=== PATIENT | female | born 1955 | race Caucasian/White ===

== ENCOUNTER 2017-01-06 14:18 | Emergency (ER) | payer OTHER ==
[2017-01-06 14:35] VITALS: BP 119/74
--- NOTE | 2017-01-06 16:00 | RAD ---
Indication: Right wrist pain. 3 views of the wrist demonstrates no fracture. There is deformity of the distal ulna which may be congenital or due to prior injury. Clinical correlation is suggested. IMPRESSION: NO FRACTURE OF THE WRIST IS NOTED. Deformity of the distal ulna for which this may be congenital or postsurgical. Clinical correlation is suggested.
--- NOTE | 2017-01-06 16:03 | RAD ---
Indication: Right forearm injury. 2 views of the right forearm demonstrates deformity of the distal ulna from prior injury or congenital malformation. No recent fracture is noted. IMPRESSION: No recent fracture is identified.
--- NOTE | 2017-01-06 16:19 | UC ---
Hand/Wrist HPI - HPI Summary HPI Summary: HURT WRIST YESTERDAY WHILE AT WORK, TWISTED WHILE TRYING TO HOLD HEAVY BASIN. PAIN IN RIGHT WRIST AND FOREARM. NO BRUISING OR DEFORMITY NOTED. HISTORY OF CARPAL TUNNEL - History Of Current Complaint Chief Complaint: UCTrauma Stated Complaint: WRIST INJURY Time Seen by Provider: 01/06/17 15:17 Hx Obtained From: Patient Onset/Duration: Sudden Onset, Lasting Days, Still Present Severity Initially: Moderate Severity Currently: Mild Character Of Pain: Dull, Aching, Stiffness Aggravating Factor(s): Movement, Flexion, Extension Alleviating: Nothing Associated Signs And Symptoms: Positive: Negative Related History: Dominant Hand Right - Allergies/Home Medications Allergies/Adverse Reactions: Allergies Allergy/AdvReac Type Severity Reaction Status Date / Time Penicillins Allergy Intermediate Nausea Verified 01/06/17 14:27 seasonal allergies Allergy Intermediate Eyes Uncoded 01/06/17 14:27 Itchy/Swollen/Red/Watery PMH/Surg Hx/FS Hx/Imm Hx Previously Healthy: Yes - Surgical History Surgical History: Yes Surgery Procedure, Year, and Place: R hand surgery as a teenager, to repair previous break, also carpal tunnel R hand over 10 yrs ago., TUBAL LIGATION - Social History Alcohol Use: Daily Substance Use Type: None Smoking Status (MU): Light Every Day Tobacco Smoker Amount Used/How Often: 1 pack/ 3 days Review of Systems Constitutional: Negative Skin: Negative Eyes: Negative ENT: Negative Respiratory: Negative Cardiovascular: Negative Gastrointestinal: Negative Genitourinary: Negative Motor: Negative Neurovascular: Negative Musculoskeletal: Arthralgia, Myalgia Neurological: Negative Psychological: Negative All Other Systems Reviewed And Are Negative: Yes Physical Exam Triage Information Reviewed: Yes Appearance: Well-Appearing, No Pain Distress, Well-Nourished, Thin Vital Signs: Initial Vital Signs Temp 98.2 F 01/06/17 14:29 Pulse 72 01/06/17 14:29 Resp 18 01/06/17 14:29 BP 119/74 01/06/17 14:29 Pulse Ox 94 01/06/17 14:29 Vital Signs Reviewed: Yes Eye Exam: Normal ENT Exam: Normal Dental Exam: Normal Neck exam: Normal Neck: Positive: Supple, Nontender, No Lymphadenopathy Respiratory Exam: Normal Respiratory: Positive: Chest non-tender, Lungs clear, Normal breath sounds, No respiratory distress, No accessory muscle use Cardiovascular Exam: Normal Cardiovascular: Positive: RRR, No Murmur, Pulses Normal Abdominal Exam: Normal Musculoskeletal: Positive: Strength Intact, ROM Intact, No Edema, Other: - PAIN WITH FLEXION RIGHT WRIST, RADIATES TO FOREARM. Neurological Exam: Normal Psychological Exam: Normal Skin Exam: Normal Hand/Wrist Course/Dx - Course Course Of Treatment: PATIENT HAS SPLINT THAT SHE PREFERS TO WEAR - Differential Dx/Diagnosis Differential Diagnosis/HQI/PQRI: Fracture, Sprain, Strain Provider Diagnoses: RIGHT WRIST SPRAIN. Discharge - Discharge Plan Condition: Stable Disposition: HOME Patient Education Materials: Wrist Sprain (ED) Referrals: [facility] [Outside] - If Needed Mo Miller MD [Primary Care Provider] - Additional Instructions: PHYSICAL THERAPY REFERRAL: You have been prescribed physical therapy. Treatments may include stretching, exercise, application of heat or cold, and other modalities. After an injury, PT can reduce swelling and pain. In recovery, PT is used to restore mobility and strength. Your specific treatment goals are: ___X__ Reduction of Swelling (EGS, US, ice as needed) ___X__ Pain Reduction (EGS, US, ice as needed) ___X__ TENS Pack Fitting and Instruction Wound Hydrotherapy ___X__ Preservation of Mobility ___X__ Orthodox of Mobility ___X__ Strength Orthodox ___X__ Work or Sports Hardening This instruction sheet also serves as your PHYSICAL THERAPY REFERRAL! Please take it with you to the therapist, so he/she will be aware of your diagnosis and treatment plan. You may see the physical therapist of your choice for these treatments, but may wish to check with your insurance to be sure the provider you select is covered. It's important to see the doctor to whom you have been referred for follow up.
== END 2017-01-06 16:16 | disposition home or self-care (01) ==
LOC: UCEAST 14:18
DX: S63.501A Unspecified sprain of right wrist, initial encounter (principal); X50.9XXA Other and unspecified overexertion or strenuous movements or postures, initial encounter; Y92.9 Unspecified place or not applicable; Z88.0 Allergy status to penicillin; F17.210 Nicotine dependence, cigarettes, uncomplicated
CPT/HCPCS: 99211; G0463

== ENCOUNTER 2017-07-02 12:01 | Emergency (ER) | payer OTHER ==
[2017-07-02 14:57] VITALS: BP 131/75
--- NOTE | 2017-07-02 15:20 | UC ---
Ear Complaint HPI - HPI Summary HPI Summary: C/O left ear discomfort with swelling and some decreased hearing over the last 5 days. Progressively worse. Peroxide used without any relief. - History of Current Complaint Chief Complaint: UCEar Stated Complaint: LEFT EAR PAIN Time Seen by Provider: 07/02/17 15:06 Hx Obtained From: Patient ?: No Onset/Duration: Gradual Onset, Lasting Days - 5, Worse Since - onset Severity Initially: Mild Severity Currently: Moderate Pain Intensity: 8 Aggravating Factors: Nothing Alleviating Factors: Nothing Associated Signs/Symptoms: Positive: Hearing Loss, Swelling @ Related History: Seasonal Allergies, Smoking - Allergies/Home Medications Allergies/Adverse Reactions: Allergies Allergy/AdvReac Type Severity Reaction Status Date / Time MS Penicillins [Penicillins] Allergy Intermediate Nausea Verified 07/02/17 14:57 seasonal allergies Allergy Intermediate Eyes Uncoded 07/02/17 14:57 Itchy/Swollen/Red/Watery PMH/Surg Hx/FS Hx/Imm Hx Cardiovascular History: Hypertension Neurological History: TIA - Surgical History Surgical History: Yes Surgery Procedure, Year, and Place: R hand surgery as a teenager, to repair previous break, also carpal tunnel R hand over 10 yrs ago., TUBAL LIGATION - Family History Known Family History: Negative: Cardiac Disease, Hypertension, Diabetes - Social History Occupation: Employed Full-time Lives: With Family Alcohol Use: Daily Substance Use Type: None Smoking Status (MU): Light Every Day Tobacco Smoker Amount Used/How Often: 1 pack/ 3 days Cessation Counseling: Patient Advised to Stop Review of Systems ENT: Ear Ache, Sinus Congestion - maxillary pressure Is Patient Immunocompromised?: No All Other Systems Reviewed And Are Negative: Yes Physical Exam Triage Information Reviewed: Yes Appearance: Well-Appearing, No Pain Distress, Well-Nourished Vital Signs: Initial Vital Signs Temp 98.8 F 07/02/17 14:53 Pulse 59 07/02/17 14:53 Resp 16 07/02/17 14:53 BP 131/75 07/02/17 14:53 Pulse Ox 100 07/02/17 14:53 Vital Signs Reviewed: Yes ENT: Positive: Pharynx normal, TMs normal, Other - irritation with redness and tenderness in the left external canal. Neck: Positive: Tenderness @ - upper left SCM with muscle. Respiratory Exam: Normal Cardiovascular Exam: Normal Musculoskeletal Exam: Normal Neurological Exam: Normal Psychological Exam: Normal Skin Exam: Normal Ear Complaint Course/Dx - Differential Dx/Diagnosis Differential Diagnosis/HQI/PQRI: Otitis Externa, Otitis Media, TMJ Syndrome, URI Provider Diagnoses: Otitis externa left. Cervicalgia. Discharge - Discharge Plan Condition: Stable Disposition: HOME Prescriptions: Neomyc/Polym/HC 1% OTIC SUSP* [Cortisporin Otic Susp 1%*] 4 drop LEFT EAR QID # 1 btl Patient Education Materials: Otitis Externa (ED), Acute Neck Pain (ED) Referrals: Mo Miller MD [Primary Care Provider] - Additional Instructions: Neck pain is muscular. Use warm packs to help loosen up the muscle. Use an analgesic balm, aspercreme, icyhot, bengay to help massage out the muscle knot Smoking Cessation Tricks. 1. Cut down by 1 cigarette per day every 2-3 days. Write the number of smokes for that day on the calendar. 2. Identify triggers to smoking: after meals, on the phone, in the car, with coffee, on breaks at work, etc. 3. Formulate a plan with a behavior to replace the smoking. Fireballs in the car , doodle pad on the phone, flavored creamer for the coffee, go for a walk after a meal or on break at work. 4. For stress smokes do deep breathing relaxation. Breath deep in through the nose hold the breath in for a few seconds then breath out slowly through the mouth.
== END 2017-07-02 15:40 | disposition home or self-care (01) ==
LOC: UCCORT 12:01
DX: H60.92 Unspecified otitis externa, left ear (principal); M54.2 Cervicalgia; F17.210 Nicotine dependence, cigarettes, uncomplicated
CPT/HCPCS: 99212; G0463